=== PATIENT | male | born 1995 | race Two or more races ===

== ENCOUNTER 2017-01-09 07:12 | Emergency (ER) | payer BC, OTHER ==
[~2017-01-09] VITALS: Ht 177.8 cm; Wt 68.2 kg
[2017-01-09] MEDS ORDERED: ONDANSETRON ODT 4 MG PO ONE (07:30)
[2017-01-09] MEDS ORDERED: HYDROmorphone 1 MG/ML, 1ML IM ONE (07:30)
[2017-01-09] MEDS ORDERED: HYDROmorphone 1 MG/ML, 1ML ONE (08:29)
[2017-01-09] MEDS ORDERED: ONDANSETRON ODT 4 MG ONE (08:29)
[2017-01-09 09:21] VITALS: BP 116/59
== END 2017-01-09 09:49 | disposition home or self-care (01) ==
LOC: ED 07:59
DX: S62.323A Displaced fracture of shaft of third metacarpal bone, left hand, initial encounter for closed fracture (principal); S62.325A Displaced fracture of shaft of fourth metacarpal bone, left hand, initial encounter for closed fracture; G89.11 Acute pain due to trauma; V49.9XXA Car occupant (driver) (passenger) injured in unspecified traffic accident, initial encounter; Y93.89 Activity, other specified; Y92.89 Other specified places as the place of occurrence of the external cause; Y99.8 Other external cause status
CPT/HCPCS: 29125; 73110; 73130; 96372; 99284; J1170; Q0162